=== PATIENT | male | born 1965 | race Two or more races ===

== ENCOUNTER 2020-11-08 15:25 | Emergency (ER) | payer MEDICAID ==
[~2020-11-08] VITALS: Ht 160 cm; Wt 85.9 kg
[2020-11-08 15:32] VITALS: BP 156/81
[2020-11-08 16:02] LABS: BASOPHILS % (AUTO) 0.5 % (0-1); EOSINOPHILS # (AUTO) 0.4 X10'3 (0-0.9); EOSINOPHILS % (AUTO) 5.2 % (0-6); HEMATOCRIT 41.8 % (42.0-52.0); HEMOGLOBIN 14.7 g/dl (14.0-17.9); LYMPHOCYTES # (AUTO) 3.1 X10'3 (1.1-4.8); LYMPHOCYTES % (AUTO) 40.7 % (21-51); MEAN CORPUSCULAR HEMOGLOBIN 31.6 PG (27.0-31.0); MEAN CORPUSCULAR HGB CONC 35.1 g/dL (33.0-36.5); MEAN PLATELET VOLUME 8.1 FL (7.4-10.4); MONOCYTES # (AUTO) 0.6 X10'3 (0-0.9); MONOCYTES % (AUTO) 7.8 % (2-12); NEUTROPHILS # (AUTO) 3.5 X10'3 (1.8-7.7); NEUTROPHILS % (AUTO) 45.8 % (42-75); PLATELET COUNT 297 X10'3 (140-440); RED BLOOD COUNT 4.64 X10'6 (4.70-6.10); RED CELL DISTRIBUTION WIDTH 13.5 % (11.5-14.5); WHITE BLOOD COUNT 7.7 X10'3 (4.5-11.0)
[2020-11-08 16:18] LABS: ALANINE AMINOTRANSFERASE 56 U/L (12-78); ALBUMIN 4.1 G/DL (3.4-5.0); ALBUMIN/GLOBULIN RATIO 1.2 (1.1-1.5); ALKALINE PHOSPHATASE 78 IU/L (46-116); ANION GAP 9 (8-16); ASPARTATE AMINO TRANSFERASE 26 U/L (10-37); BILIRUBIN,TOTAL 0.4 MG/DL (0.1-1.0); BLOOD UREA NITROGEN 13 MG/DL (7-18); BUN/CREATININE RATIO 14.9 (5.4-32.0); CALCIUM 8.8 MG/DL (8.5-10.1); CHLORIDE 103 MMOL/L (99-107); CREATININE 0.87 MG/DL (0.60-1.10); GLUCOSE 144 MG/DL (70-104); POTASSIUM 3.8 MMOL/L (3.5-5.1); SODIUM 139 MMOL/L (135-145); TOTAL CARBON DIOXIDE 27.3 MMOL/L (24-32); TOTAL PROTEIN 7.5 G/DL (6.4-8.2); eGFR > 90 ML/MIN
--- NOTE | 2020-11-08 18:38 | NUR ---
This patient was not seen or evaluated by RN. I was just informed by MD So that she discharged the patient.
== END 2020-11-08 18:39 | disposition home or self-care (01) ==
LOC: ER 15:26
DX: R51.9 Headache, unspecified (principal); R53.1 Weakness; R42 Dizziness and giddiness; I25.10 Atherosclerotic heart disease of native coronary artery without angina pectoris; E78.00 Pure hypercholesterolemia, unspecified; I10 Essential (primary) hypertension; E11.9 Type 2 diabetes mellitus without complications; Z98.890 Other specified postprocedural states
CPT/HCPCS: 36415; 70450; 71045; 80053; 82948; 84484; 85025; 93005; 99285

== ENCOUNTER 2021-01-03 13:48 | Inpatient (IN) | payer MEDICAID ==
[~2021-01-03] VITALS: Ht 160 cm; Wt 80.1 kg
[2021-01-03 14:28] LABS: BASOPHILS % (AUTO) 0.5 % (0-1); EOSINOPHILS # (AUTO) 0.3 X10'3 (0-0.9); EOSINOPHILS % (AUTO) 4.5 % (0-6); HEMATOCRIT 40.4 % (42.0-52.0); HEMOGLOBIN 13.9 g/dl (14.0-17.9); LYMPHOCYTES # (AUTO) 2.8 X10'3 (1.1-4.8); LYMPHOCYTES % (AUTO) 40.1 % (21-51); MEAN CORPUSCULAR HEMOGLOBIN 31.5 PG (27.0-31.0); MEAN CORPUSCULAR HGB CONC 34.5 g/dL (33.0-36.5); MEAN CORPUSCULAR VOLUME 91.4 FL (78-98); MEAN PLATELET VOLUME 8.2 FL (7.4-10.4); MONOCYTES # (AUTO) 0.5 X10'3 (0-0.9); MONOCYTES % (AUTO) 7.1 % (2-12); NEUTROPHILS # (AUTO) 3.4 X10'3 (1.8-7.7); NEUTROPHILS % (AUTO) 47.8 % (42-75); PLATELET COUNT 275 X10'3 (140-440); RED BLOOD COUNT 4.42 X10'6 (4.70-6.10); RED CELL DISTRIBUTION WIDTH 13.3 % (11.5-14.5); WHITE BLOOD COUNT 7.1 X10'3 (4.5-11.0)
[2021-01-03 14:44] LABS: ALANINE AMINOTRANSFERASE 77 U/L (12-78); ALBUMIN/GLOBULIN RATIO 1.2 (1.1-1.5); ALKALINE PHOSPHATASE 85 IU/L (46-116); ANION GAP 12 (8-16); ASPARTATE AMINO TRANSFERASE 27 U/L (10-37); BILIRUBIN,TOTAL 0.4 MG/DL (0.1-1.0); BLOOD UREA NITROGEN 11 MG/DL (7-18); BUN/CREATININE RATIO 12.1 (5.4-32.0); CALCIUM 8.6 MG/DL (8.5-10.1); CHLORIDE 104 MMOL/L (99-107); CREATININE 0.91 MG/DL (0.60-1.10); GLUCOSE 171 MG/DL (70-104); POTASSIUM 3.8 MMOL/L (3.5-5.1); SODIUM 143 MMOL/L (135-145); TOTAL PROTEIN 7.3 G/DL (6.4-8.2); eGFR 87 ML/MIN
[2021-01-03] MEDS ORDERED: aspirin 81mg tab.chew PO ONE (18:10)
[2021-01-03] MEDS ORDERED: SIMV-45 PO (18:39)
[2021-01-03] MEDS ORDERED: GLIM4TAB7 PO (18:39)
[2021-01-03] MEDS ORDERED: METF-438 PO (18:39)
[2021-01-03] MEDS ORDERED: CLOP75TA34 PO (18:47)
[2021-01-03] MEDS ORDERED: LISI1TAB32 PO (18:47)
[2021-01-03] MEDS ORDERED: magnesium Cl slow-release 64mg tablet PO PRN (19:00)
[2021-01-03] MEDS ORDERED: ondansetron/PF 4mg/2ml inj IV PRN (19:00)
[2021-01-03] MEDS ORDERED: PERFLUTREN PROTEIN-A MICROSPHR (Optison) 0.22 MG/ML 3ML VIAL IV ONE (19:00)
[2021-01-03] MEDS ORDERED: mag hydrox/Alum hydrox/simeth 30ml oral suspension PO PRN (19:00)
[2021-01-03] MEDS ORDERED: potassium Cl 40MEQ/1/2NS 520ml 520 ML IV PRN ×2 (19:00)
[2021-01-03] MEDS ORDERED: magnesium 2GM in 50ml NS 50 ML IV PRN (19:00)
[2021-01-03] MEDS ORDERED: magnesium hydroxide 30ml (MOM) UD suspension PO PRN (19:00)
[2021-01-03] MEDS ORDERED: HYDROcodone/acetaminophen 5mg/325mg tablet PO PRN (19:00)
[2021-01-03] MEDS ORDERED: potassium Cl 20 mEq SR tablet PO PRN ×2 (19:00)
[2021-01-03] MEDS ORDERED: acetaminophen 325mg tablet PO PRN ×2 (19:00)
[2021-01-03] MEDS ORDERED: magnesium 4gm in 100ml NS 100 ML IV PRN (19:00)
[2021-01-03] MEDS ORDERED: MESSAGE TO PHARMACY PO ONE (19:05)
[2021-01-03] MEDS ORDERED: metoprolol tartrate 1mg/ml inj IV PRN (19:05)
[2021-01-03] MEDS ORDERED: aminophylline 250mg/10ml inj. IV PRN (19:05)
[2021-01-03] MEDS ORDERED: dextrose 50%-water 50ml dispensing syringe IV PRN ×2 (19:05)
[2021-01-03] MEDS ORDERED: dextrose ORAL solution 15 GM/59 ML bottle PO PRN ×2 (19:05)
[2021-01-03] MEDS ORDERED: nitroGLYCERIN 0.4mg SUBLingual tab SL PRN (19:05)
[2021-01-03] MEDS ORDERED: regadenoson 0.4mg/5ml syringe IV ONE (19:05)
[2021-01-03] MEDS ORDERED: glucagon, human recombinant 1mg kit SUBCUT PRN (19:05)
[2021-01-03 19:27] LABS: HEMOGLOBIN A1C 7.6 % (4.5-6.2)
[2021-01-03] MEDS: K and/or MAG REPLACEMENT MC SCH (20:00)
[2021-01-03] MEDS: heparin, porcine 5000 units/ml vial SQ SCH (20:00)
[2021-01-03] MEDS: docusate sod 100mg capsule PO SCH (20:00)
[2021-01-04] VITALS (13 sets, daily range): BP systolic 97–137; BP diastolic 47–73
[2021-01-04 01:57] LABS: BASOPHILS % (AUTO) 0.3 % (0-1); EOSINOPHILS # (AUTO) 0.4 X10'3 (0-0.9); EOSINOPHILS % (AUTO) 4.1 % (0-6); HEMATOCRIT 41.4 % (42.0-52.0); HEMOGLOBIN 14.2 g/dl (14.0-17.9); LYMPHOCYTES # (AUTO) 3.7 X10'3 (1.1-4.8); LYMPHOCYTES % (AUTO) 37.2 % (21-51); MEAN CORPUSCULAR HEMOGLOBIN 31.4 PG (27.0-31.0); MEAN CORPUSCULAR HGB CONC 34.3 g/dL (33.0-36.5); MEAN CORPUSCULAR VOLUME 91.5 FL (78-98); MEAN PLATELET VOLUME 7.9 FL (7.4-10.4); MONOCYTES # (AUTO) 0.8 X10'3 (0-0.9); MONOCYTES % (AUTO) 7.9 % (2-12); NEUTROPHILS % (AUTO) 50.5 % (42-75); PLATELET COUNT 268 X10'3 (140-440); RED BLOOD COUNT 4.52 X10'6 (4.70-6.10); RED CELL DISTRIBUTION WIDTH 13.2 % (11.5-14.5); WHITE BLOOD COUNT 9.9 X10'3 (4.5-11.0)
[2021-01-04 02:09] LABS: ALANINE AMINOTRANSFERASE 68 U/L (12-78); ALBUMIN 3.3 G/DL (3.4-5.0); ALBUMIN/GLOBULIN RATIO 0.9 (1.1-1.5); ALKALINE PHOSPHATASE 70 IU/L (46-116); ANION GAP 8 (8-16); ASPARTATE AMINO TRANSFERASE 24 U/L (10-37); BILIRUBIN,TOTAL 0.6 MG/DL (0.1-1.0); BLOOD UREA NITROGEN 13 MG/DL (7-18); BUN/CREATININE RATIO 15.1 (5.4-32.0); CHLORIDE 106 MMOL/L (99-107); CREATININE 0.86 MG/DL (0.60-1.10); GLUCOSE 151 MG/DL (70-104); POTASSIUM 3.8 MMOL/L (3.5-5.1); SODIUM 141 MMOL/L (135-145); TOTAL CARBON DIOXIDE 27.5 MMOL/L (24-32); eGFR > 90 ML/MIN
[2021-01-04 02:12] LABS: CHOL/HDL RATIO 3.5 (0.00-4.99); CHOLESTEROL 117 MG/DL (0-200); HDL CHOLESTEROL 33 MG/DL (35-60); LDL CHOLESTEROL 69 MG/DL (50-100); MAGNESIUM 2.1 MG/DL (1.5-2.4); TRIGLYCERIDES 153 MG/DL (20-135)
[2021-01-04] MEDS ORDERED: clopidogrel 75mg tablet PO SCH (08:00)
[2021-01-04] MEDS ORDERED: HYDROchlorothiazide 12.5mg capsule PO SCH (08:00)
[2021-01-04] MEDS ORDERED: lisinopril 10 MG tablet PO SCH (08:00)
[2021-01-04] MEDS: K and/or MAG REPLACEMENT MC SCH ×2 (08:00→20:00)
--- NOTE | 2021-01-04 08:42 | NUR ---
Page to Dr. Chakraborty [id number] Jorge Beyer- Ghulam Piedra 46-50. BP 127/64. Asymptomatic. Hold Hydrochlorthiazide and lisinopril? Dara [id number] Addendum: 01/04/21 at 1155 by Dara Calles RN 09- Dr. Chakraborty states to hold off on medications until patient returns from [facility] and we will reassess
[2021-01-04] MEDS: docusate sod 100mg capsule PO SCH ×2 (12:07→19:20)
[2021-01-04] MEDS: heparin, porcine 5000 units/ml vial SQ SCH (12:07)
[2021-01-04] MEDS: atorvastatin 20mg tablet PO SCH (12:07)
[2021-01-04] MEDS ORDERED: heparin 10,000 units/1 ML INJ IV PRN (13:00)
[2021-01-04] MEDS ORDERED: heparin 10,000 units/1 ML INJ IV ONE (13:00)
--- NOTE | 2021-01-04 14:00 | NUR ---
1400- Dr. Chakraborty states she talked with BUILDING CODE INSPECTOR Gabbi Chen, who is working with Dr. Mendez, was made aware of the patient sinus abimael 40s. 1500- Dr. Mendez called stating to take patient off NPO and he will assess the patient in the morning.
[2021-01-04 14:19] LABS: BASOPHILS % (AUTO) 0.4 % (0-1); EOSINOPHILS # (AUTO) 0.4 X10'3 (0-0.9); EOSINOPHILS % (AUTO) 4.2 % (0-6); HEMATOCRIT 44.4 % (42.0-52.0); HEMOGLOBIN 15.2 g/dl (14.0-17.9); LYMPHOCYTES # (AUTO) 3.8 X10'3 (1.1-4.8); LYMPHOCYTES % (AUTO) 38.4 % (21-51); MEAN CORPUSCULAR HEMOGLOBIN 31.6 PG (27.0-31.0); MEAN CORPUSCULAR HGB CONC 34.3 g/dL (33.0-36.5); MEAN CORPUSCULAR VOLUME 92.2 FL (78-98); MEAN PLATELET VOLUME 8.4 FL (7.4-10.4); MONOCYTES # (AUTO) 0.7 X10'3 (0-0.9); MONOCYTES % (AUTO) 7.4 % (2-12); NEUTROPHILS % (AUTO) 49.6 % (42-75); PLATELET COUNT 292 X10'3 (140-440); RED BLOOD COUNT 4.81 X10'6 (4.70-6.10); RED CELL DISTRIBUTION WIDTH 13.4 % (11.5-14.5)
[2021-01-04 14:28] LABS: PARTIAL THROMBOPLASTIN TIME 28 SECONDS (22-32)
[2021-01-04] MEDS: heparin 25,000 UNIT/250ml bag 250 ML IV SCH (14:55)
--- NOTE | 2021-01-04 18:31 | NUR ---
Problems reprioritized. Patient report given, questions answered & plan of care reviewed with Liz NAVARRO .
[2021-01-04] MEDS: insulin Lispro (HumaLOG) vial - multi-dose SQ SCH (19:23)
--- NOTE | 2021-01-04 21:30 | NUR ---
Cardiac PTT: 57-per protocol, no adjustment in gtt needed. Scheduled next draw for 0300 on 01/05
[2021-01-05] VITALS (13 sets, daily range): BP systolic 97–126; BP diastolic 50–77
[2021-01-05 03:43] LABS: BASOPHILS % (AUTO) 0.4 % (0-1); EOSINOPHILS # (AUTO) 0.4 X10'3 (0-0.9); HEMATOCRIT 42.4 % (42.0-52.0); HEMOGLOBIN 14.5 g/dl (14.0-17.9); LYMPHOCYTES % (AUTO) 35.2 % (21-51); MEAN CORPUSCULAR HEMOGLOBIN 31.2 PG (27.0-31.0); MEAN CORPUSCULAR HGB CONC 34.1 g/dL (33.0-36.5); MEAN CORPUSCULAR VOLUME 91.6 FL (78-98); MEAN PLATELET VOLUME 8.5 FL (7.4-10.4); MONOCYTES # (AUTO) 0.7 X10'3 (0-0.9); MONOCYTES % (AUTO) 7.8 % (2-12); NEUTROPHILS # (AUTO) 4.5 X10'3 (1.8-7.7); NEUTROPHILS % (AUTO) 51.6 % (42-75); PLATELET COUNT 264 X10'3 (140-440); RED BLOOD COUNT 4.63 X10'6 (4.70-6.10); RED CELL DISTRIBUTION WIDTH 13.2 % (11.5-14.5); WHITE BLOOD COUNT 8.7 X10'3 (4.5-11.0)
[2021-01-05 04:00] LABS: ALANINE AMINOTRANSFERASE 63 U/L (12-78); ALBUMIN 3.5 G/DL (3.4-5.0); ALBUMIN/GLOBULIN RATIO 1.1 (1.1-1.5); ALKALINE PHOSPHATASE 94 IU/L (46-116); ANION GAP 11 (8-16); ASPARTATE AMINO TRANSFERASE 22 U/L (10-37); BILIRUBIN,TOTAL 0.6 MG/DL (0.1-1.0); BLOOD UREA NITROGEN 16 MG/DL (7-18); BUN/CREATININE RATIO 19.3 (5.4-32.0); CHLORIDE 106 MMOL/L (99-107); CREATININE 0.83 MG/DL (0.60-1.10); GLUCOSE 146 MG/DL (70-104); MAGNESIUM 2.1 MG/DL (1.5-2.4); SODIUM 143 MMOL/L (135-145); TOTAL CARBON DIOXIDE 25.8 MMOL/L (24-32); TOTAL PROTEIN 6.7 G/DL (6.4-8.2); eGFR > 90 ML/MIN
--- NOTE | 2021-01-05 05:19 | NUR ---
Cardiac PTT: 52-per protocol, no adjustment in gtt needed. Scheduled next draw for 929 on 01/05
--- NOTE | 2021-01-05 06:36 | NUR ---
Problems reprioritized. Patient report given, questions answered & plan of care reviewed with MELANIE Morse.
--- NOTE | 2021-01-05 06:41 | NUR ---
Patient in room PCU 3012. I have received report from CESAR NAVARRO and had the opportunity to ask questions and assume patient care. PT SLEEPING, NO DISTRESS. CALL LIGHT IN REACH. Addendum: 01/05/21 at 0642 by Saba Be RN Amended: Links added.
--- NOTE | 2021-01-05 07:02 | NUR ---
Problems reprioritized. Patient report given, questions answered & plan of care reviewed with KRUNAL NAVARRO. Addendum: 01/05/21 at 0703 by Saba Be RN Amended: Links added.
[2021-01-05] MEDS: docusate sod 100mg capsule PO SCH ×2 (07:47→19:14)
[2021-01-05] MEDS: atorvastatin 20mg tablet PO SCH (07:47)
[2021-01-05] MEDS: K and/or MAG REPLACEMENT MC SCH ×2 (07:50→20:00)
[2021-01-05] MEDS ORDERED: midazolam 1 mg/ML 2ml injection ONE (14:24)
[2021-01-05] MEDS ORDERED: LIDOcaine 1% (10mg/ml)w/preservative injection 20ml MDV ONE (14:24)
[2021-01-05] MEDS ORDERED: nitroGLYCERIN-Tridil 50MG/D5W 250 ML IV ONE (14:24)
[2021-01-05] MEDS ORDERED: heparin 1,000unit/ml 10ml vial 10 ML ONE (14:24)
[2021-01-05] MEDS ORDERED: verapamil 2.5 mg/ml inj IV ONE (14:24)
[2021-01-05] MEDS ORDERED: fentaNYL/PF 50MCG/1 ML 2ML syringe ONE (14:24)
[2021-01-05] MEDS ORDERED: iohexol 350MG/ML 100ml bottle IV ONE (14:25)
--- NOTE | 2021-01-05 15:06 | NUR ---
DM Consult: Pt A1C 7.6 w/ hx T2DM. Pt not available during RD visit. Would benefit from DM Ed this admit. Addendum: 01/05/21 at [address] Amended: Links added.
[2021-01-05] MEDS ORDERED: HYDROcodone/acetaminophen 5mg/325mg tablet PO PRN (16:10)
[2021-01-05] MEDS ORDERED: OXAZEpam 15mg capsule PO PRN (16:10)
[2021-01-05] MEDS ORDERED: HYDROcodone/acetaminophen 10/325mg tab PO PRN (16:10)
[2021-01-05] MEDS ORDERED: proCHLORperazine 10 MG/2 ml inj IV PRN (16:10)
[2021-01-05] MEDS ORDERED: ondansetron/PF 4mg/2ml inj IV PRN (16:10)
[2021-01-05] MEDS: heparin 25,000 UNIT/250ml bag 250 ML IV SCH (16:47)
--- NOTE | 2021-01-05 18:15 | NUR ---
Patient in room PCU 3012. I have received report from Fátima NAVARRO and had the opportunity to ask questions and assume patient care.
--- NOTE | 2021-01-05 18:29 | NUR ---
vasc band has been released by 2 ml q15m per written orders. NO bleeding
--- NOTE | 2021-01-05 18:29 | NUR ---
Problems reprioritized. Patient report given, questions answered & plan of care reviewed with MELANIE Mckeon.
[2021-01-05] MEDS: insulin Lispro (HumaLOG) vial - multi-dose SQ SCH (19:14)
[2021-01-06] VITALS (7 sets, daily range): BP systolic 98–121; BP diastolic 49–76
--- NOTE | 2021-01-06 06:05 | NUR ---
Problems reprioritized. Patient report given, questions answered & plan of care reviewed with Micky NAVARRO.
[2021-01-06 06:19] LABS: BASOPHILS % (AUTO) 0.5 % (0-1); EOSINOPHILS # (AUTO) 0.4 X10'3 (0-0.9); HEMATOCRIT 42.1 % (42.0-52.0); HEMOGLOBIN 14.7 g/dl (14.0-17.9); LYMPHOCYTES # (AUTO) 2.8 X10'3 (1.1-4.8); LYMPHOCYTES % (AUTO) 40.8 % (21-51); MEAN CORPUSCULAR HEMOGLOBIN 31.6 PG (27.0-31.0); MEAN CORPUSCULAR VOLUME 90.4 FL (78-98); MEAN PLATELET VOLUME 8.4 FL (7.4-10.4); MONOCYTES # (AUTO) 0.6 X10'3 (0-0.9); MONOCYTES % (AUTO) 8.5 % (2-12); NEUTROPHILS % (AUTO) 44.2 % (42-75); PLATELET COUNT 277 X10'3 (140-440); RED BLOOD COUNT 4.65 X10'6 (4.70-6.10); WHITE BLOOD COUNT 6.8 X10'3 (4.5-11.0)
[2021-01-06 06:27] LABS: ALBUMIN 3.5 G/DL (3.4-5.0); ANION GAP 7 (8-16); ASPARTATE AMINO TRANSFERASE 25 U/L (10-37); BILIRUBIN,TOTAL 0.6 MG/DL (0.1-1.0); BLOOD UREA NITROGEN 15 MG/DL (7-18); BUN/CREATININE RATIO 17.4 (5.4-32.0); CALCIUM 8.2 MG/DL (8.5-10.1); CHLORIDE 105 MMOL/L (99-107); CREATININE 0.86 MG/DL (0.60-1.10); GLUCOSE 154 MG/DL (70-104); MAGNESIUM 2.2 MG/DL (1.5-2.4); POTASSIUM 4.1 MMOL/L (3.5-5.1); SODIUM 139 MMOL/L (135-145); TOTAL CARBON DIOXIDE 26.8 MMOL/L (24-32); TOTAL PROTEIN 6.9 G/DL (6.4-8.2); eGFR > 90 ML/MIN
[2021-01-06 06:28] LABS: ALANINE AMINOTRANSFERASE 69 U/L (12-78); ALKALINE PHOSPHATASE 91 IU/L (46-116); CHOL/HDL RATIO 3.8 (0.00-4.99); CHOLESTEROL 126 MG/DL (0-200); HDL CHOLESTEROL 33 MG/DL (35-60); LDL CHOLESTEROL 70 MG/DL (50-100); TRIGLYCERIDES 103 MG/DL (20-135)
[2021-01-06] MEDS: atorvastatin 20mg tablet PO SCH (07:45)
[2021-01-06] MEDS: docusate sod 100mg capsule PO SCH ×2 (07:45→20:36)
[2021-01-06] MEDS: K and/or MAG REPLACEMENT MC SCH ×2 (08:00→20:00)
[2021-01-06] MEDS: insulin Lispro (HumaLOG) vial - multi-dose SQ SCH ×2 (09:18→13:27)
--- NOTE | 2021-01-06 13:56 | NUR ---
F/u: Written DM education with RD contact information placed in patient's chart. Will remain available. Addendum: 01/06/21 at [address] Amended: Links added.
--- NOTE | 2021-01-06 15:45 | NUR ---
Dr. Chakraborty paged: [id number]: Pt requesting to go home, can they be discharged? Thanks Micky [id number]
--- NOTE | 2021-01-06 18:02 | NUR ---
Shift report from Micky NAVARRO, asked questions, assumed care. Elda
--- NOTE | 2021-01-06 18:06 | NUR ---
Problems reprioritized. Patient report given, questions answered & plan of care reviewed with Maria Eugenia NAVARRO.
[2021-01-06] MEDS: heparin 25,000 UNIT/250ml bag 250 ML IV SCH (20:34)
--- NOTE | 2021-01-06 20:53 | NUR ---
NO LANTUS ORDERED FOR PATIENT DESPIOTE [facility] PROTOCOL, HUMALOG GIVEN ON DAYS. PATIENT DENIES WANTING LANTUS. TAKES ORAL MEDICATION AT HOME, DENIES WANTING LANTUS. BLOOD GLUCOSE 179 AT 2100. BINDU NAVARRO
--- NOTE | 2021-01-07 00:30 | NUR ---
Patient in room PCU 3012. I have received report from ASIF NAVARRO and had the opportunity to ask questions and assume patient care.
[2021-01-07 06:00] VITALS: BP 108/68
[2021-01-07 06:54] LABS: BASOPHILS % (AUTO) 0.4 % (0-1); EOSINOPHILS # (AUTO) 0.4 X10'3 (0-0.9); EOSINOPHILS % (AUTO) 6.1 % (0-6); HEMATOCRIT 41.1 % (42.0-52.0); HEMOGLOBIN 14.4 g/dl (14.0-17.9); LYMPHOCYTES # (AUTO) 2.9 X10'3 (1.1-4.8); LYMPHOCYTES % (AUTO) 40.2 % (21-51); MEAN CORPUSCULAR HEMOGLOBIN 31.6 PG (27.0-31.0); MEAN CORPUSCULAR HGB CONC 35.1 g/dL (33.0-36.5); MEAN CORPUSCULAR VOLUME 90.1 FL (78-98); MEAN PLATELET VOLUME 8.5 FL (7.4-10.4); MONOCYTES # (AUTO) 0.6 X10'3 (0-0.9); MONOCYTES % (AUTO) 8.1 % (2-12); NEUTROPHILS # (AUTO) 3.3 X10'3 (1.8-7.7); NEUTROPHILS % (AUTO) 45.2 % (42-75); PLATELET COUNT 287 X10'3 (140-440); RED BLOOD COUNT 4.56 X10'6 (4.70-6.10); WHITE BLOOD COUNT 7.3 X10'3 (4.5-11.0)
[2021-01-07 07:01] LABS: ALANINE AMINOTRANSFERASE 69 U/L (12-78); ALBUMIN 3.5 G/DL (3.4-5.0); ALKALINE PHOSPHATASE 89 IU/L (46-116); ANION GAP 9 (8-16); ASPARTATE AMINO TRANSFERASE 30 U/L (10-37); BILIRUBIN,TOTAL 0.5 MG/DL (0.1-1.0); BLOOD UREA NITROGEN 13 MG/DL (7-18); BUN/CREATININE RATIO 15.5 (5.4-32.0); CALCIUM 8.4 MG/DL (8.5-10.1); CHLORIDE 108 MMOL/L (99-107); CREATININE 0.84 MG/DL (0.60-1.10); GLUCOSE 171 MG/DL (70-104); MAGNESIUM 2.3 MG/DL (1.5-2.4); SODIUM 143 MMOL/L (135-145); TOTAL CARBON DIOXIDE 25.6 MMOL/L (24-32); TOTAL PROTEIN 6.9 G/DL (6.4-8.2); eGFR > 90 ML/MIN
[2021-01-07] MEDS: K and/or MAG REPLACEMENT MC SCH (08:00)
[2021-01-07] MEDS: docusate sod 100mg capsule PO SCH (08:01)
[2021-01-07] MEDS: atorvastatin 20mg tablet PO SCH (08:01)
[2021-01-07] MEDS: insulin Lispro (HumaLOG) vial - multi-dose SQ SCH ×2 (10:22→13:22)
[2021-01-07 11:00] VITALS: BP 108/70
[2021-01-07] MEDS ORDERED: ASPI81TA52 PO (12:36)
--- NOTE | 2021-01-07 14:25 | NUR ---
Patient stable for discharge per MD orders. All discharge instructions reviewed with patient and all questions answered. Patient will make own follow up appointment with PCP and real estate clerk. New Rx e-scripted to [facility], [facility]. PIV discontinued, cannula intact. Telemetry discontinued. Belongings collected and sent with patient. Patient walked to front of [facility] where private vehicle was waiting.
== END 2021-01-07 14:25 | disposition home or self-care (01) | DRG 191 ==
LOC: ER 13:48 → ED HOLD 19:03 → PCU 3S 01-04 08:03
PROVIDERS: ADMIT Internal Medicine; ATTEND Internal Medicine
PROC: 4A02XM4 Measurement of Cardiac Total Activity, External Approach (ICD-10-PCS; 2021-01-04)
PROC: 3E073KZ Introduction of Other Diagnostic Substance into Coronary Artery, Percutaneous Approach (ICD-10-PCS; 2021-01-04)
PROC: 4A023N7 Measurement of Cardiac Sampling and Pressure, Left Heart, Percutaneous Approach (ICD-10-PCS; principal; 2021-01-05)
PROC: B2111ZZ Fluoroscopy of Multiple Coronary Arteries using Low Osmolar Contrast (ICD-10-PCS; 2021-01-05)
PROC: B2151ZZ Fluoroscopy of Left Heart using Low Osmolar Contrast (ICD-10-PCS; 2021-01-05)
DX: I24.9 Acute ischemic heart disease, unspecified (principal); E11.65 Type 2 diabetes mellitus with hyperglycemia; E78.00 Pure hypercholesterolemia, unspecified; E78.5 Hyperlipidemia, unspecified; I10 Essential (primary) hypertension; I25.10 Atherosclerotic heart disease of native coronary artery without angina pectoris; I25.2 Old myocardial infarction; Z82.3 Family history of stroke; Z83.3 Family history of diabetes mellitus; Z86.73 Personal history of transient ischemic attack (TIA), and cerebral infarction without residual deficits; Z87.891 Personal history of nicotine dependence; Z95.5 Presence of coronary angioplasty implant and graft; Z79.82 Long term (current) use of aspirin; Z79.899 Other long term (current) drug therapy
CPT/HCPCS: 36415; 71045; 78452; 80053; 80061; 82948; 83036; 83735; 83880; 84484; 85025; 85610; 85730; 87081; 93005; 93017; 93306; 99285; A9500; G0378; J1644; J1815; J2001; J2250; J2785; J3010; J3490; Q9967